=== PATIENT | male | born 1975 | race Caucasian/White ===

== ENCOUNTER 2022-01-05 09:21 | Emergency (ER) | payer SELFPAY ==
[~2022-01-05] VITALS: Ht 180.3 cm; Wt 96.9 kg
[2022-01-05 09:52] VITALS: BP 149/90
[2022-01-05] MEDS ORDERED: ACET-1158 PO (10:14)
[2022-01-05] MEDS ORDERED: CEPH-509 PO (10:14)
== END 2022-01-05 10:34 | disposition home or self-care (01) ==
LOC: ER 09:21
DX: S60.512A Abrasion of left hand, initial encounter (principal); W22.8XXA Striking against or struck by other objects, initial encounter; Y93.89 Activity, other specified; Y92.89 Other specified places as the place of occurrence of the external cause; Y99.8 Other external cause status
CPT/HCPCS: 73120